=== PATIENT | female | born 1990 | race Two or more races ===

== ENCOUNTER 2019-02-25 21:27 | Emergency (ER) | payer SELFPAY ==
[~2019-02-25] VITALS: Ht 160 cm; Wt 55.1 kg
[~2019-02-25 21:27] MED LIST: HYDR50TA15 PO; IBUP-1542 PO; NITR-58 PO
[2019-02-25 21:38] VITALS: Ht 160 cm; Wt 55.1 kg
[2019-02-26 00:53] VITALS: BP 118/76; PULSE 81; RESP 16
[2019-02-26] MEDS ORDERED: LORAZEPAM 1 MG TAB PO ONE (01:00)
[2019-02-26] MEDS ORDERED: IBUPROFEN 600 MG TAB PO ONE (01:00)
== END 2019-02-26 00:52 | disposition home or self-care (01) ==
LOC: FTE 21:27
DX: M62.830 Muscle spasm of back (principal); F41.9 Anxiety disorder, unspecified; F17.210 Nicotine dependence, cigarettes, uncomplicated
CPT/HCPCS: 81003; 81025; 99283